=== PATIENT | male | born 1975 | race Caucasian/White ===

== ENCOUNTER → 2020-02-03 15:14 | Outpatient (CLI) | payer OTHER, SELFPAY ==
[2020-02-03 16:31] LABS: Add Manual Diff / Slide Review NO; Basophils Absolute Auto 100 /uL (0-100); Basophils Percent Auto 0.5 % (0-2); Eosinophils Absolute Auto 100 /uL (0-450); Eosinophils Percent Auto 0.8 % (2-4); Hematocrit 49.4 % (41-53); Lymphocytes Absolute Auto 2700 /uL (1100-4500); Lymphocytes Percent Auto 25.7 % (25-40); Mean Corpuscular HGB Conc 34.3 % (30-36); Mean Corpuscular Volume 90.4 fL (80-100); Monocytes Absolute Auto 900 /uL (0-900); Monocytes Percent Auto 8.5 % (3-14); Neutrophils Absolute Auto 6700 /uL (1500-7000); Neutrophils Percent Auto 64.5 % (50-75); Platelet Count 305 X10^3/uL (150-400); Red Blood Cell Count 5.47 X10^6/uL (4.5-5.9); Red Cell Distribution Width 13.2 % (11.6-14.8); White Blood Cell Count 10.5 X10^3/uL (4.5-11.0)
== END ==
PROVIDERS: Referring Provider Registered Nurse; Visit Provider Registered Nurse
DX: R53.83 Other fatigue (principal)
CPT/HCPCS: 36415; 85025

== ENCOUNTER 2020-02-06 15:44 | Emergency (ER) | payer OTHER, SELFPAY ==
[2020-02-06 16:00] VITALS: BP 129/81; PULSE 90; RESP 14; TEMP 36.8; O2SAT 99
--- NOTE | 2020-02-06 16:40 | DI.RAD.S_ITS ---
PROCEDURE: XR CHEST 2V INDICATIONS: shortness of breath TECHNIQUE: 2 views of the chest were acquired. COMPARISON: None. FINDINGS: Surgical changes and devices: None. Lungs and pleura: Lungs are clear. No pleural effusions or pneumothorax. There may be minimal atelectasis within the posterior costophrenic angles on the lateral view. Mediastinum: Mediastinal contours are normal. Heart size is normal. Bones and chest wall: No suspicious bony abnormalities. Soft tissues appear unremarkable. IMPRESSION: Negative chest. No acute cardiopulmonary process is evident. Dictated by: Kel Ruiz M.D. on 02/06/2020 at 16:11 Approved by: Kel Ruiz M.D. on 02/06/2020 at 16:19
[2020-02-06 17:15] VITALS: BP 106/79; PULSE 72; RESP 16; O2SAT 99
[2020-02-06 17:33] LABS: Add Manual Diff / Slide Review NO; Basophils Absolute Auto 100 /uL (0-100); Basophils Percent Auto 0.9 % (0-2); Eosinophils Absolute Auto 100 /uL (0-450); Eosinophils Percent Auto 0.7 % (2-4); Hematocrit 49.3 % (41-53); Hemoglobin 17.4 g/dL (13.5-17.5); Lymphocytes Absolute Auto 2300 /uL (1100-4500); Lymphocytes Percent Auto 25.4 % (25-40); Mean Corpuscular HGB Conc 35.3 % (30-36); Mean Corpuscular Hemoglobin 31.8 PG (26-34); Monocytes Absolute Auto 800 /uL (0-900); Neutrophils Absolute Auto 5900 /uL (1500-7000); Platelet Count 258 X10^3/uL (150-400); Red Blood Cell Count 5.48 X10^6/uL (4.5-5.9); Red Cell Distribution Width 12.9 % (11.6-14.8); White Blood Cell Count 9.2 X10^3/uL (4.5-11.0)
[2020-02-06 17:41] LABS: Alanine Aminotransferase 29 IU/L (<50); Albumin 4.6 g/dL (3.5-5.0); Albumin Globulin Ratio 1.4 (1.0-2.8); Alkaline Phosphatase 79 U/L (38-126); Aspartate Aminotransferase 32 IU/L (17-59); BUN Creatinine Ratio 21.3 (6-22); Bilirubin Total 0.5 mg/dL (0.2-1.3); Blood Urea Nitrogen 20 mg/dL (9-20); Calcium 9.7 mg/dL (8.4-10.2); Carbon Dioxide 26 mmol/L (22-32); Chloride 105 mmol/L (98-107); Creatine Kinase 80 U/L (55-170); Estimated Glomerular Filt Rate > 60.0 mL/min (>60); Globulin 3.3 g/dL (1.7-4.1); Glucose 89 mg/dL (70-100); HEMOLYSIS < 15 (0-50); Potassium 4.1 mmol/L (3.4-5.1); Sodium 141 mmol/L (137-145); Total Protein 7.9 g/dL (6.3-8.2)
[2020-02-06 17:43] LABS: D Dimer < 200 ng/mL (<230)
[2020-02-06] MEDS: SODIUM CHLORIDE 0.9% 1,000 ML 1000 ML IV (17:45)
[2020-02-06 17:52] LABS: NT-proBNP (BNP-Adult 18+) < 11 pg/mL (<125); Troponin I < 0.012 ng/mL (0.01-0.034)
[2020-02-06 17:57] LABS: Procalcitonin < 0.05 ng/mL (<0.5)
[2020-02-06 18:07] VITALS: BP 109/78; PULSE 72; RESP 16; O2SAT 100
--- NOTE | 2020-02-06 18:21 | ED_ITS ---
HPI - SOB/Dyspnea <JULY Reed - Last Filed: 02/06/20 20:01> General Chief Complaint: Shortness of Breath/Dyspnea Stated Complaint: Shortness of breath, hypoxia, dry cough Time Seen by Provider: 02/06/20 16:21 Source: patient and family Mode of arrival: Ambulatory Limitations: no limitations History of Present Illness HPI Narrative: The patient is a 45-year-old male nonsmoker with history of chronic Eb[place] Daniel who presents with a chief complaint of hypoxia, dry cough and shortness of Breath. He has a home oxygen monitor which she states was down in the 70s earlier today. He states he was recently seen at the respiratory clinic a few days ago, and earlier this week was swabbed for covid in [place]. He states that this test came back negative. He states that he feels short of breath, easily fatigued, and has substernal chest pain. He states he used to see a insurance clerk, but has not seen them since they were in his early 20s due to ?I do not trust doctors.He reiterates that he does not have a primary care provider does not see get hold care because he does not have confidence of medical providers or the medical system. He states he is mostly concerned because his oxygen levels in the 70s earlier today. He is speaking full sentences on arrival, vital signs are stable is at his bedside. He denies any nausea vomiting or diarrhea. He has difficulty wearing a mask at work and has to remove it so he does not feels short of breath. Related Data Home Medications Medication Instructions Recorded Confirmed esomeprazole magnesium 20 mg 20 mg PO DAILY 02/03/20 02/03/20 capsule,delayed release Previous Rx's Medication Instructions Recorded nystatin 100,000 unit/mL oral 1 ml PO QID 7 Days #28 ml 02/03/20 suspension Allergies Allergy/AdvReac Type Severity Reaction Status Date / Time No Known Drug Allergies Allergy Verified 02/06/20 16:16 Review of Systems <JULY Reed - Last Filed: 02/06/20 20:01> Review of Systems Narrative: GENERAL: Denies chills, fatigue, malaise, fever, sweats. HEENT: Denies sinus pain, ear pain, sore throat, difficulty swallowing, dizziness. RESPIRATORY: See HPI CARDIOVASCULAR: See HPI GASTROINTESTINAL: Denies nausea, vomiting, abdominal pain, diarrhea, constipation, melena. : Denies dysuria, frequency, incontinence, hematuria, urinary retention. MUSCULOSKELETAL: denies weakness, joint pain, or bony pain SKIN: Denies rash, skin lesions, or other NEUROLOGIC: Denies weakness, headache, numbness, change in speech, confusion, seizures, incoordination. PSYCHIATRIC: No concerning psychosocial issues. 12 point review of systems is negative except for those stated above Patient History <JULY Reed - Last Filed: 02/06/20 20:01> Medical History (Updated 02/06/20 @ 19:58 by JULY Reed) Chronic Avtar Daniel virus (EBV) infection (Acute) Social History Smoking Status: Never smoker Smoking Status: Never smoker alcohol intake frequency: holidays/special occasions only Substance Use Type: does not use Exam <JULY Reed - Last Filed: 02/06/20 20:01> Narrative Exam Narrative: GENERAL: This is a well-nourished, well-developed patient, in no acute distress HEAD: Atraumatic. Normocephalic. No temporal or scalp tenderness. EYES: Pupils equal round and reactive. Extraocular motions intact. No scleral icterus. No injection or drainage. ENT: Nose without bleeding, purulent drainage or septal hematoma. Throat without erythema, tonsillar hypertrophy or exudate. Uvula midline. Airway patent. NECK: Trachea midline. No JVD or lymphadenopathy. Supple, nontender, no meningeal signs. CARDIOVASCULAR: Regular rate and rhythm RESPIRATORY: Clear to auscultation. Breath sounds equal bilaterally. No wheezes, rales, or rhonchi. Speaking full sentences. GASTROINTESTINAL: Abdomen soft, non-tender, nondistended. No hepato- splenomegaly, or palpable masses. No guarding. EXTREMITIES: No clubbing, cyanosis, or edema. No joint tenderness, effusion, or edema noted. BACK: Nontender without deformity or crepitance. No flank tenderness. NEURO: AOx3. SKIN: No rash or erythema. Initial Vital Signs Initial Vital Signs: Vital Signs Temperature 98.3 F 02/06/20 16:00 Pulse Rate 90 02/06/20 16:00 Respiratory Rate 14 02/06/20 16:00 Blood Pressure 129/81 02/06/20 16:00 Pulse Oximetry 99 05/02/20 16:00 <Alireza Gruber DO - Last Filed: 02/06/20 20:15> Initial Vital Signs Initial Vital Signs: Vital Signs Temperature 98.3 F 02/06/20 16:00 Pulse Rate 90 02/06/20 16:00 Respiratory Rate 14 02/06/20 16:00 Blood Pressure 129/81 02/06/20 16:00 Pulse Oximetry 99 02/06/20 16:00 Scores <JULY Reed - Last Filed: 02/06/20 20:01> GCS [place] coma scale eye opening: Spontaneous [place] coma scale verbal response: Orientated [place] coma scale motor response: Obey commands [place] coma scale total score: 15 HEART Score Heart Score history: Slightly Suspicious Heart Score EKG: Normal Heart Score Age: < 45 years old Heart Score risk factors: 1-2 risk factors Heart Score troponin: < or = to normal limit Heart Score Total: 1 Wells' Criteria for PE Clinical signs and symptoms of DVT: No PE is #1 Dx or equally likely: No Heart rate > 100: No Immobilization at least 3 days or surg in previous 4 weeks: No History of PE or DVT: No Hemoptysis: No Malignancy w/Treatment within 6 months or palliative: No Wells' PE Score total: 0 Course <JULY Reed - Last Filed: 02/06/20 20:01> Orders Ordered: ED Orders 02/06/20 16:39 Consult to Respiratory Therapy Evaluate & Treat 02/06/20 16:40 XR chest 2V Stat 02/06/20 17:15 Complete Blood Count AUTO DIFF Stat Comprehensive Metabolic Panel Stat D Dimer Stat Magnesium Stat NT-proBNP (BNP-Adult 18+) Stat Procalcitonin Stat Troponin & CK Cardiac Panel Stat 02/06/20 19:10 Troponin & CK Cardiac Panel Stat Discontinued Medications Sodium Chloride (Normal Saline 0.9%) 1,000 mls @ 1,000 mls/hr IV BOLUS ONE Stop: 02/06/20 17:39 Last Infusion: 02/06/20 18:30 Dose: 1,000 mls/hr Documented by: Admin: 02/06/20 17:45 Dose: 1,000 mls/hr Documented by: JACKSON Vital Signs Vital signs: Vital Signs - 8 hr 02/06/20 16:00 02/06/20 17:15 02/06/20 18:07 Temperature 98.3 F Pulse Rate 90 72 72 Respiratory Rate 14 16 16 Blood Pressure 129/81 Blood Pressure [Right Arm] 106/79 109/78 Pulse Oximetry 99 99 100 02/06/20 19:05 Temperature Pulse Rate 67 Respiratory Rate 16 Blood Pressure Blood Pressure [Right Arm] 106/72 Pulse Oximetry 99 <Alireza Gruber DO - Last Filed: 02/06/20 20:15> Orders Ordered: ED Orders 02/06/20 16:39 Consult to Respiratory Therapy Evaluate & Treat 02/06/20 16:40 XR chest 2V Stat 02/06/20 17:15 Complete Blood Count AUTO DIFF Stat Comprehensive Metabolic Panel Stat D Dimer Stat Magnesium Stat NT-proBNP (BNP-Adult 18+) Stat Procalcitonin Stat Troponin & CK Cardiac Panel Stat 02/06/20 19:10 Troponin & CK Cardiac Panel Stat Discontinued Medications Sodium Chloride (Normal Saline 0.9%) 1,000 mls @ 1,000 mls/hr IV BOLUS ONE Stop: 02/06/20 17:39 Last Infusion: 02/06/20 18:30 Dose: 1,000 mls/hr Documented by: Admin: 02/06/20 17:45 Dose: 1,000 mls/hr Documented by: JACKSON Vital Signs Vital signs: Vital Signs - 8 hr 02/06/20 16:00 02/06/20 17:15 02/06/20 18:07 Temperature 98.3 F Pulse Rate 90 72 72 Respiratory Rate 14 16 16 Blood Pressure 129/81 Blood Pressure [Right Arm] 106/79 109/78 Pulse Oximetry 99 99 100 02/06/20 19:05 Temperature Pulse Rate 67 Respiratory Rate 16 Blood Pressure Blood Pressure [Right Arm] 106/72 Pulse Oximetry 99 MDM - SOB/Dyspnea <JULY Reed - Last Filed: 02/06/20 20:01> Lab Data Result diagrams: 02/06/20 17:15 02/06/20 17:15 Labs: Lab Results 02/06/20 02/06/20 02/06/20 Range/Units 17:15 17:15 17:15 WBC 9.2 (4.5-11.0) X10^3/uL RBC 5.48 (4.5-5.9) X10^6/uL Hgb 17.4 (13.5-17.5) g/dL Hct 49.3 (41-53) % MCV 90.0 (80-100) fL MCH 31.8 (26-34) PG MCHC 35.3 (30-36) % RDW 12.9 (11.6-14.8) % Plt Count 258 (150-400) X10^3/uL Neut % (Auto) 64.0 (50-75) % Lymph % (Auto) 25.4 (25-40) % [place] % (Auto) 9.0 (3-14) % Eos % (Auto) 0.7 L (2-4) % Baso % (Auto) 0.9 (0-2) % Neut # (Auto) 5900 (3777-6852) /uL Lymph # (Auto) 2300 (9924-3339) /uL [place] # (Auto) 800 (0-900) /uL Eos # (Auto) 100 (0-450) /uL Baso # (Auto) 100 (0-100) /uL D-Dimer < 200 (<230) ng/mL Sodium 141 (137-145) mmol/L Potassium 4.1 (3.4-5.1) mmol/L Chloride 105 (98-107) mmol/L Carbon Dioxide 26 (22-32) mmol/L BUN 20 (9-20) mg/dL Creatinine 0.94 (0.66-1.25) mg/dL Estimated GFR > 60.0 (>60) mL/min BUN/Creatinine Ratio 21.3 (6-22) Glucose 89 (70-100) mg/dL Calcium 9.7 (8.4-10.2) mg/dL Magnesium 2.0 (1.6-2.3) mg/dL Total Bilirubin 0.5 (0.2-1.3) mg/dL AST 32 (17-59) IU/L ALT 29 (<50) IU/L Alkaline Phosphatase 79 (38-126) U/L Total Creatine Kinase 80 (55-170) U/L CK-MB (CK-2) TNP CK-MB (CK-2) Rel Index TNP Troponin I < 0.012 (0.01-0.034) ng/mL NT-Pro-B Natriuret Pep < 11 (<125) pg/mL Total Protein 7.9 (6.3-8.2) g/dL Albumin 4.6 (3.5-5.0) g/dL Globulin 3.3 (1.7-4.1) g/dL Albumin/Globulin Ratio 1.4 (1.0-2.8) Procalcitonin (<0.5) ng/mL 02/06/20 02/06/20 Range/Units 17:15 19:10 WBC (4.5-11.0) X10^3/uL RBC (4.5-5.9) X10^6/uL Hgb (13.5-17.5) g/dL Hct (41-53) % MCV (80-100) fL MCH (26-34) PG MCHC (30-36) % RDW (11.6-14.8) % Plt Count (150-400) X10^3/uL Neut % (Auto) (50-75) % Lymph % (Auto) (25-40) % [place] % (Auto) (3-14) % Eos % (Auto) (2-4) % Baso % (Auto) (0-2) % Neut # (Auto) (9073-6122) /uL Lymph # (Auto) (5907-3515) /uL [place] # (Auto) (0-900) /uL Eos # (Auto) (0-450) /uL Baso # (Auto) (0-100) /uL D-Dimer (<230) ng/mL Sodium (137-145) mmol/L Potassium (3.4-5.1) mmol/L Chloride (98-107) mmol/L Carbon Dioxide (22-32) mmol/L BUN (9-20) mg/dL Creatinine (0.66-1.25) mg/dL Estimated GFR (>60) mL/min BUN/Creatinine Ratio (6-22) Glucose (70-100) mg/dL Calcium (8.4-10.2) mg/dL Magnesium (1.6-2.3) mg/dL Total Bilirubin (0.2-1.3) mg/dL AST (17-59) IU/L ALT (<50) IU/L Alkaline Phosphatase (38-126) U/L Total Creatine Kinase 72 (55-170) U/L CK-MB (CK-2) TNP CK-MB (CK-2) Rel Index TNP Troponin I < 0.012 (0.01-0.034) ng/mL NT-Pro-B Natriuret Pep (<125) pg/mL Total Protein (6.3-8.2) g/dL Albumin (3.5-5.0) g/dL Globulin (1.7-4.1) g/dL Albumin/Globulin Ratio (1.0-2.8) Procalcitonin < 0.05 (<0.5) ng/mL Imaging Data Chest x-ray: Radiologist's Impression: [facility] [place] [id number] XRay Report Signed Patient: Dae Beebe CMR#: [id number] : 1975Acct:[id number] Age/Sex: 45 / MDate of Service: 02/06/20 Loc: ED Accession Number: [id number] Procedure: XR chest 2V Ordering Provider: Katelyn Ojeda PROCEDURE: XR CHEST 2V INDICATIONS: shortness of breath TECHNIQUE: 2 views of the chest were acquired. COMPARISON: None. FINDINGS: Surgical changes and devices: None. Lungs and pleura: Lungs are clear. No pleural effusions or pneumothorax. There may be minimal atelectasis within the posterior costophrenic angles on the lateral view. Mediastinum: Mediastinal contours are normal. Heart size is normal. Bones and chest wall: No suspicious bony abnormalities. Soft tissues appear unremarkable. IMPRESSION: Negative chest. No acute cardiopulmonary process is evident. Dictated by: Kel Ruiz M.D. on 02/06/2020 at 16:11 Approved by: Kel Ruiz M.D. on 02/06/2020 at 16:[address] [facility] Narrative Medical decision making narrative: The patient is a 45-year-old male with history of ?chronic [place]tar [place] virus who presents with a chief complaint of shortness of breath, chest pain and hypoxia at home. His home SpO2 monitor was in the 70s. Who presents to the emergency department in no acute distress. Normal chest x-ray and exam else rule out pneumonia. Acute cardiac event ruled out by negative troponin x2, normal EKG. He has been without hypoxia in the emergency department during his several hour stay, saturating in the 97-100% range. He has been without chest pain or shortness of breath. Given his work, we did elect to recent what him for coronavirus. I discussed at length all 14 etcetera at home and that we will call him whether the results positive for negative. I did encourage the patient to obtain a primary care provider for follow-up, and encouraged him to not dismiss the medical system especially given that he has a chronic illness. <Alireza Gruber, DO - Last Filed: 02/06/20 20:15> Lab Data Labs: Lab Results 02/06/20 02/06/20 02/06/20 Range/Units 17:15 17:15 17:15 WBC 9.2 (4.5-11.0) X10^3/uL RBC 5.48 (4.5-5.9) X10^6/uL Hgb 17.4 (13.5-17.5) g/dL Hct 49.3 (41-53) % MCV 90.0 (80-100) fL MCH 31.8 (26-34) PG MCHC 35.3 (30-36) % RDW 12.9 (11.6-14.8) % Plt Count 258 (150-400) X10^3/uL Neut % (Auto) 64.0 (50-75) % Lymph % (Auto) 25.4 (25-40) % [place] % (Auto) 9.0 (3-14) % Eos % (Auto) 0.7 L (2-4) % Baso % (Auto) 0.9 (0-2) % Neut # (Auto) 5900 (2995-2798) /uL Lymph # (Auto) 2300 (6772-3094) /uL [place] # (Auto) 800 (0-900) /uL Eos # (Auto) 100 (0-450) /uL Baso # (Auto) 100 (0-100) /uL D-Dimer < 200 (<230) ng/mL Sodium 141 (137-145) mmol/L Potassium 4.1 (3.4-5.1) mmol/L Chloride 105 (98-107) mmol/L Carbon Dioxide 26 (22-32) mmol/L BUN 20 (9-20) mg/dL Creatinine 0.94 (0.66-1.25) mg/dL Estimated GFR > 60.0 (>60) mL/min BUN/Creatinine Ratio 21.3 (6-22) Glucose 89 (70-100) mg/dL Calcium 9.7 (8.4-10.2) mg/dL Magnesium 2.0 (1.6-2.3) mg/dL Total Bilirubin 0.5 (0.2-1.3) mg/dL AST 32 (17-59) IU/L ALT 29 (<50) IU/L Alkaline Phosphatase 79 (38-126) U/L Total Creatine Kinase 80 (55-170) U/L CK-MB (CK-2) TNP CK-MB (CK-2) Rel Index TNP Troponin I < 0.012 (0.01-0.034) ng/mL NT-Pro-B Natriuret Pep < 11 (<125) pg/mL Total Protein 7.9 (6.3-8.2) g/dL Albumin 4.6 (3.5-5.0) g/dL Globulin 3.3 (1.7-4.1) g/dL Albumin/Globulin Ratio 1.4 (1.0-2.8) Procalcitonin (<0.5) ng/mL 02/06/20 02/06/20 Range/Units 17:15 19:10 WBC (4.5-11.0) X10^3/uL RBC (4.5-5.9) X10^6/uL Hgb (13.5-17.5) g/dL Hct (41-53) % MCV (80-100) fL MCH (26-34) PG MCHC (30-36) % RDW (11.6-14.8) % Plt Count (150-400) X10^3/uL Neut % (Auto) (50-75) % Lymph % (Auto) (25-40) % [place] % (Auto) (3-14) % Eos % (Auto) (2-4) % Baso % (Auto) (0-2) % Neut # (Auto) (1699-3526) /uL Lymph # (Auto) (6787-2207) /uL [place] # (Auto) (0-900) /uL Eos # (Auto) (0-450) /uL Baso # (Auto) (0-100) /uL D-Dimer (<230) ng/mL Sodium (137-145) mmol/L Potassium (3.4-5.1) mmol/L Chloride (98-107) mmol/L Carbon Dioxide (22-32) mmol/L BUN (9-20) mg/dL Creatinine (0.66-1.25) mg/dL Estimated GFR (>60) mL/min BUN/Creatinine Ratio (6-22) Glucose (70-100) mg/dL Calcium (8.4-10.2) mg/dL Magnesium (1.6-2.3) mg/dL Total Bilirubin (0.2-1.3) mg/dL AST (17-59) IU/L ALT (<50) IU/L Alkaline Phosphatase (38-126) U/L Total Creatine Kinase 72 (55-170) U/L CK-MB (CK-2) TNP CK-MB (CK-2) Rel Index TNP Troponin I < 0.012 (0.01-0.034) ng/mL NT-Pro-B Natriuret Pep (<125) pg/mL Total Protein (6.3-8.2) g/dL Albumin (3.5-5.0) g/dL Globulin (1.7-4.1) g/dL Albumin/Globulin Ratio (1.0-2.8) Procalcitonin < 0.05 (<0.5) ng/mL Discharge Plan Departure Patient Disposition: Home Clinical Impression: Shortness of Breath, Atypical chest pain Instructions: DI for Shortness of Breath, How to Manage Shortness of Breath, DI for COVID-19 (Suspected or Confirmed ), Can COVID-19 be prevented? Activity Restrictions/Additional Instructions: Thank you for trusting us with your care today As discussed your workup came back normal and your oxygen has been well throughout your stay in the emergency department We will call you with your coronavirus test results whether they are positive or negative. Please act as though you are sick, self isolate wash your hands etcetera Please follow-up with primary care provider Please come back to emergency department for any acute concerns Prescriptions: No Action esomeprazole magnesium [Nexium] 20 mg capsule,delayed release(DR/EC) 20 mg PO DAILY RF: 0 nystatin 100,000 unit/mL suspension 1 ml PO QID 7 Days Qty: 28 RF: 0 Referrals: Fermin Powers MD [Physician] - <Alireza Gruber, - Last Filed: 02/06/20 20:15> Sign Out Provider Sign Out Attestation: Dr Gruber Co-Sign Statement: I was available for consultation during this patient's emergency department visit. This chart is signed by myself for administrative purposes only. I did not have direct contact with this patient during this visit. They were seen independently by the APC.
[2020-02-06 19:05] VITALS: BP 106/72; PULSE 67; RESP 16; O2SAT 99
[2020-02-06 19:29] LABS: Creatine Kinase 72 U/L (55-170)
[2020-02-06 19:41] LABS: Troponin I < 0.012 ng/mL (0.01-0.034)
[2020-02-06 20:12] VITALS: BP 106/70; PULSE 62; RESP 14; O2SAT 100
[2020-02-09 03:08] LABS: COVID19 Sendout Not Detected (Not Detected)
== END 2020-02-06 20:12 | disposition home or self-care (01) ==
PROVIDERS: Emergency Provider Nurse Practitioner Family
DX: R06.02 Shortness of breath (principal); R07.89 Other chest pain; R05 Cough
CPT/HCPCS: 36415; 71046; 80053; 82550; 83735; 83880; 84145; 84484; 85025; 85379; 87635; 93005; 96360; 99284

== ENCOUNTER → 2020-03-25 10:47 | Outpatient (CLI) | payer OTHER, SELFPAY ==
[2020-03-25 11:54] LABS: Cholesterol 191 mg/dL (140-199); HDL Cholesterol 34 mg/dL (40-60); LDL Cholesterol Calculated 111 mg/dL (<100); Triglycerides 231 mg/dL (35-150)
== END ==
PROVIDERS: PCP Student in an Organized Health Care Education/Training Program; Referring Provider Student in an Organized Health Care Education/Training Program; Visit Provider Student in an Organized Health Care Education/Training Program
DX: Z13.220 Encounter for screening for lipoid disorders (principal)
CPT/HCPCS: 36415; 80061

== ENCOUNTER → 2023-02-27 14:25 | Outpatient (CLI) | payer OTHER, SELFPAY ==
[2023-02-27 15:17] LABS: Add Manual Diff / Slide Review NO; Basophils Absolute Auto 0 /uL (0-100); Basophils Percent Auto 0.5 % (0-2); Eosinophils Absolute Auto 100 /uL (0-450); Eosinophils Percent Auto 0.6 % (2-4); Hematocrit 47.1 % (41-53); Hemoglobin 16.3 g/dL (13.5-17.5); Lymphocytes Absolute Auto 1900 /uL (1100-4500); Lymphocytes Percent Auto 23.5 % (25-40); Mean Corpuscular HGB Conc 34.7 % (30-36); Mean Corpuscular Volume 89.4 fL (80-100); Monocytes Absolute Auto 700 /uL (0-900); Neutrophils Absolute Auto 5500 /uL (1500-7000); Neutrophils Percent Auto 66.4 % (50-75); Platelet Count 277 X10^3/uL (150-400); Red Blood Cell Count 5.26 X10^6/uL (4.5-5.9); Red Cell Distribution Width 13.3 % (11.6-14.8); White Blood Cell Count 8.3 X10^3/uL (4.5-11.0)
[2023-02-27 15:39] LABS: Appearance Urine UA CLEAR; Bilirubin Urine UA NEGATIVE (NEGATIVE); Color Urine UA YELLOW; Glucose Urine UA NEGATIVE (Negative); Ketones Urine UA NEGATIVE (NEGATIVE); Leukocyte Esterase Urine UA NEGATIVE (NEGATIVE); Nitrite Urine UA NEGATIVE (Negative); Occult Blood Urine UA TRACE-INTACT (Negative); Protein Urine UA NEGATIVE (Negative); Specific Gravity Urine UA >=1.030 (1.000-1.035); Urobilinogen Urine UA 0.2 E.U./dL (0.2); pH Urine UA 5.5 (4.5-8.0)
[2023-02-27 15:39] LABS: Alanine Aminotransferase 31 IU/L (<50); Albumin 4.7 g/dL (3.5-5.0); Albumin Globulin Ratio 1.5 (1.0-2.8); Alkaline Phosphatase 65 U/L (38-126); Aspartate Aminotransferase 32 IU/L (17-59); BUN Creatinine Ratio 17.8 (6-22); Bilirubin Total 0.7 mg/dL (0.2-1.3); Blood Urea Nitrogen 19 mg/dL (9-20); C-Reactive Protein Quant 0.7 mg/dL (<1.0); Calcium 9.3 mg/dL (8.4-10.2); Carbon Dioxide 26 mmol/L (22-32); Chloride 103 mmol/L (98-107); Erythrocyte Sedimentation Rate 1 MM/HR (0-15); Estimated Glomerular Filt Rate > 60 mL/min (>60); Globulin 3.1 g/dL (1.7-4.1); Glucose 99 mg/dL (70-100); HEMOLYSIS 21 (0-50); Potassium 3.8 mmol/L (3.4-5.1); Sodium 137 mmol/L (137-145); Total Protein 7.8 g/dL (6.3-8.2)
[2023-02-27 15:41] LABS: Rheumatoid Factor < 8.6 IU/mL (<12.0)
[2023-02-27 15:49] LABS: RBC Urine 0-1/HPF (0-5/HPF); Squamous Epithelial Cell Urine None Seen (0-5/HPF); WBC Urine 0-1/HPF (0-5/HPF)
[2023-02-27 15:50] LABS: Bacteria Urine None Seen; Culture Indicated Urine Cult Not Indicated
[2023-02-28 10:37] LABS: EBV Virus IgM Ab < 36.0 U/mL (0.0-35.9)
[2023-03-03 18:08] LABS: ANA Screen, IFA Negative (.)
== END ==
PROVIDERS: PCP Pediatrics; Referring Provider Pediatrics; Visit Provider Pediatrics
DX: G62.9 Polyneuropathy, unspecified (principal); I47.1 Supraventricular tachycardia; K21.9 Gastro-esophageal reflux disease without esophagitis; M25.50 Pain in unspecified joint; M79.10 Myalgia, unspecified site
CPT/HCPCS: 36415; 80053; 81001; 85025; 85651; 86038; 86140; 86430; 86664; 86665

== ENCOUNTER → 2023-05-16 14:17 | Outpatient (CLI) | payer OTHER, SELFPAY | PROVIDERS: Family Provider Pediatrics; PCP Pediatrics; Referring Provider Pediatrics; Visit Provider Pediatrics | DX: M25.50 Pain in unspecified joint (principal); M79.10 Myalgia, unspecified site; G62.9 Polyneuropathy, unspecified; M54.9 Dorsalgia, unspecified | CPT/HCPCS: 95885; 95886; 95912 ==

== ENCOUNTER → 2023-05-24 11:19 | Outpatient (CLI) | payer OTHER, SELFPAY ==
--- NOTE | 2023-05-24 11:24 | DI.RAD.S_ITS ---
PROCEDURE: XR LUMBAR SPINE 2-3V INDICATIONS: Arthralgias, back pain, stiffness, assess anatomy with ? TECHNIQUE: 3 views of the lumbar spine were acquired. COMPARISON: None. FINDINGS: Bones: 5 [id number] vertebrae are present. There is normal bony alignment. No vertebral body compression fractures. No suspicious bony lesions. Mild disc height loss at L5-S1. Minimal degenerative endplate changes and spurring. Mild facet arthropathy lower lumbar spine. Soft tissues: Overlying bowel gas pattern is normal. No suspicious soft tissue calcifications. IMPRESSION: Mild degenerative changes of the lumbar spine. No evidence of ankylosing spondylitis. Dictated by: Maxx Coto M.D. on 05/24/2023 at 12:51 Approved by: Maxx Coto M.D. on 05/24/2023 at 12:52
== END ==
PROVIDERS: Family Provider Pediatrics; PCP Pediatrics; Referring Provider Pediatrics; Visit Provider Pediatrics
DX: M47.816 Spondylosis without myelopathy or radiculopathy, lumbar region (principal); M25.69 Stiffness of other specified joint, not elsewhere classified; M25.50 Pain in unspecified joint; M79.10 Myalgia, unspecified site; G62.9 Polyneuropathy, unspecified; L74.9 Eccrine sweat disorder, unspecified
CPT/HCPCS: 36415; 72100; 82657

== ENCOUNTER → 2023-07-10 09:59 | Outpatient (CLI) | payer OTHER, SELFPAY ==
[2023-07-10 11:17] LABS: Creatine Kinase 104 U/L (55-170)
[2023-07-10 11:35] LABS: Vitamin D 25 Hydroxy (D3) 40.9 ng/mL (30.0-100.0)
[2023-07-10 11:50] LABS: Ferritin 69 ng/mL (18-464)
[2023-07-10 11:55] LABS: TSH w/ Reflex to FT4 0.95 uIU/mL (0.47-4.68)
[2023-07-10 12:22] LABS: Folate 12.5 ng/mL (2.76-20.0); Vitamin B12 845 pg/mL (239-931)
[2023-07-10 12:25] LABS: HEMOLYSIS < 15 (0-50); Iron 112 ug/dL (49-181); Percent Iron Saturation 31 % (20-50); Total Iron Binding Capacity 359 ug/dL (261-462); Transferrin 276 mg/dL (206-381)
== END ==
PROVIDERS: Family Provider Pediatrics; Referring Provider Physician Assistant; Visit Provider Physician Assistant
DX: M79.10 Myalgia, unspecified site (principal)
CPT/HCPCS: 36415; 82306; 82550; 82607; 82728; 82746; 83540; 83550; 84443